=== PATIENT | female | born 1955 | race Caucasian/White ===

== ENCOUNTER 2021-11-26 07:05 | Day surgery (SDC) | payer MEDICARE, BC ==
[~2021-11-26] VITALS: Ht 170.2 cm; Wt 88.6 kg
[~2021-11-26 07:05] MED LIST: ADULT LOW DOSE81 MG PO; ADVIL200 MG PO; CRANBERRY 4001 EACH PO; DOXYCYCLINE HY100 MG PO; FLUOXETINE HCL20 MG PO; IRON325 M1 PO; MAGNESIUM400 MG PO; OMEPRAZOLE20 MG PO; PANTOPRAZOLE SO40 MG PO; PEPCID40 MG PO; SIMVASTATIN20 MG PO; TOPROL XL25 MG PO; VITAMIN C500 M1 PO; VITAMIN D5000 UNIT PO
[2021-11-26] MEDS ORDERED: POTASSIUM CHLO10 ME1 PO (07:27)
[2021-11-26] MEDS ORDERED: FLUOXETINE HCL20 MG PO (07:27)
--- NOTE | 2021-11-26 08:52 | NUR ---
11/26/21 0852 Adri Wright 0899-PATIENT ARRIVED TO PACU ON 2L NC RR EVEN LAYING LEFT LATERAL. IVF INFUSING. PATIENT AROUSES TO VERBAL STIMULI REMAINS VERY DROWSY DOZES BACK TO SLEEP. IVF INFUSING.
--- NOTE | 2021-11-27 06:13 | OR ---
[facility] [address] [place], [place] [address] Signed DATE OF OPERATION: 11/26/2021 SURGEON: Anita Salazar MD PREOPERATIVE DIAGNOSES: 1. Personal history of colonic polyps in 2010 at age 55. 2. Diverticulosis 2013. POSTOPERATIVE DIAGNOSES: 1. Moderate sigmoid diverticulosis with multiple severe angulations. 2. 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 3. Minimal to moderate internal hemorrhoids. PROCEDURE: Colonoscopy with cold biopsy x1 left colon. ESTIMATED BLOOD LOSS: None. INDICATIONS: Earlene is a 65-year-old female, asked to see me for a followup colonoscopy. A general surgeon removed colonic polyps before in 2010 while she lived in [place], [place]. She was age 55. She believes the surgeon asked her to follow up in three years for repeat colonoscopy. I helped with a colonoscopy in 2013. She had moderate diverticulosis. She did develop some anemia and guaiac-positive stool associated with acid reflux. There was also concern about a possible colovesicular fistula based on recurring urinary tract infections. However, asymptomatic. She had been working with her urologist at that time. Apparently, there was some air in her bladder on the CT scan. Although she never complained of pneumaturia. I did her upper and lower endoscopy in 2014 and found a small hiatal hernia with mild gastritis. Again, she had diverticulosis but no obvious colovesicular fistula. She had done well with Versed and fentanyl. Because she was asymptomatic, she never underwent a sigmoid resection and she has done well over the last six years. She says she has intermittent urinary tract infections. They are usually asymptomatic. She is probably colonized to some degree. She has no family history of colon cancer or polyps. She currently has no lower GI complaints. In the office, I gave her a pamphlet on colonoscopy. She recalls the test well. There is risk including, but not limited to gas bloating, crampy abdominal pain, bleeding, perforation requiring surgery, and missed diagnosis. She also understands the need for IV conscious sedation. She had expressed understanding and wished to proceed. Electronically Signed By: ANITA SALAZAR MD 11/27/21 0613 PATIENT NAME: EARLENE DUKE OPERATIVE REPORT DATE OF : 53 REPORT #: [id number] PHYSICIAN: ANITA SALAZAR MD PCP: ECHO METZ REPORT IS CONFIDENTIAL AND NOT TO BE RELEASED WITHOUT AUTHORIZATION [facility] [address] [place], [place] [address] Signed PROCEDURE NOTE: Earlene was taken into our endoscopy suite and placed in the left lateral decubitus position. She was given a total of 10 mg of Versed and 150 mcg of fentanyl to cover the case. A digital rectal exam was performed and I could feel either staple lines there is some mesh through the wall of the rectum. It looks like she had a hysterectomy back in 2007. The adult colonoscope had been introduced and advanced under direct visualization of the camera. Her sigmoid colon is quite difficult because of the multiple areas of angulation. She benefits well from a double bowel prep. It took extra sedation and some abdominal compression and eventually we made our way through the sigmoid colon. The lumen then opened up very nicely and the scope travelled quite readily up through into the proximal right colon. It took just a little extra abdominal compression and the scope passed into the cecum itself. Overall, her prep was quite good. The scope was then slowly withdrawn. We could easily see the appendiceal orifice as well as the ileocecal valve. We took pictures throughout for photodocumentation. We noticed mild tiger striping throughout the colon consistent with melanosis coli. Consequently, we took a single cold biopsy from the left colon. Again, she has diverticulosis. They are moderate in size, moderate in number, and scattered about. Again, her sigmoid colon has multiple areas of angulation. The rectum itself was unremarkable. Upon retroflexion of the scope, she has minimal to moderate internal hemorrhoids as well. After this, the gas was suctioned out and the colonoscope removed. Earlene tolerated the procedure quite well. RECOMMENDATIONS: I will see Earlene back in my office in 7 to 14 days to review her biopsy results. Anita Salazar MD ALB/MODL /[id number] cc: KEVIN Mortensen MD Copies: ECHO METZ Electronically Signed By: ANITA SALAZAR MD 11/27/21 0613 PATIENT NAME: EARLENE DUKE OPERATIVE REPORT DATE OF : 53 REPORT #: [id number] PHYSICIAN: ANITA SALAZAR MD PCP: ECHO METZ REPORT IS CONFIDENTIAL AND NOT TO BE RELEASED WITHOUT AUTHORIZATION [address] [address] Signed ANITA SALAZAR MD ~ Electronically Signed By: ANITA SALAZAR MD 11/27/21 0613 PATIENT NAME: EARLENE DUKE PEPE OPERATIVE REPORT DATE OF : 53 REPORT #: [id number] PHYSICIAN: ANITA SALAZAR MD PCP: ECHO METZ REPORT IS CONFIDENTIAL AND NOT TO BE RELEASED WITHOUT AUTHORIZATION
== END 2021-11-26 09:30 | disposition home or self-care (01) ==
LOC: OPS 07:05 → DS 07:05 → OPS 08:15
PROVIDERS: ATTEND Colon & Rectal Surgery
PROC: 0DBG8ZX Excision of Left Large Intestine, Via Natural or Artificial Opening Endoscopic, Diagnostic (ICD-10-PCS; principal; 2021-11-26 08:15)
DX: Z09 Encounter for follow-up examination after completed treatment for conditions other than malignant neoplasm (principal); K57.30 Diverticulosis of large intestine without perforation or abscess without bleeding; K63.89 Other specified diseases of intestine; K64.8 Other hemorrhoids
CPT/HCPCS: 99153; G0500; J2250; J3010; J7121

== ENCOUNTER 2024-10-02 17:52 | Emergency (ER) | payer MEDICARE, OTHER ==
[~2024-10-02] VITALS: Ht 170.2 cm; Wt 102.0 kg
[~2024-10-02 17:52] MED LIST changes: +POTASSIUM CHLO10 ME1 PO
[2024-10-02] MEDS ORDERED: ATORVASTATIN CA40 MG PO (18:08)
[2024-10-02] MEDS ORDERED: METOPROLOL SUCC50 MG PO (18:08)
[2024-10-02] MEDS ORDERED: METOPROLOL TARTRATE 5 MG/5 ML VIAL IV SCH (18:15)
[2024-10-02 18:23] LABS: BASOPHILS 1.2 % (0-2); EOSINOPHILS 3.9 % (0-6); HEMATOCRIT 39.5 % (35.0-50.0); HEMOGLOBIN 13.3 g/dL (12.0-18.0); MCH 29.5 (27-36); MCHC 33.7 g/dl (30-36); MCV 87.4 fl (81-99); MONOCYTES 11.9 % (0-12); PLATELET COUNT 256 K/uL (140-440); RBC 4.52 M/ul (4.3-5.7); RDW 16.1 (10.5-15.0)
[2024-10-02 18:43] LABS: ALBUMIN 3.5 g/dL (3.4-5.0); ALBUMIN/GLOBULIN RATIO 0.95 (1.1-2.4); BILIRUBIN, TOTAL 0.4 ng/dL (0.2-1.0); BUN/CREATININE RATIO 22.01 (6.0-28.6); CALCIUM 8.9 mg/dL (8.5-10.1); CREATININE, SERUM 1.09 mg/dL (0.55-1.02); PROTEIN, TOTAL 7.2 g/dL (6.4-8.2); TSH, 3RD GENERATION 4.759 uIU/mL (0.358-3.740)
[2024-10-02] MEDS ORDERED: ETOMIDATE 40 MG/20 ML VIAL IV ONE (19:15)
[2024-10-02 20:28] VITALS: BP 150/58
[2024-10-02] MEDS ORDERED: APIXABAN 5 MG TAB PO ONE (20:30)
--- NOTE | 2024-10-04 13:57 | EKG ---
[facility] [address] [facility] [place] [address] Signed Atrial fibrillation with rapid ventricular response Nonspecific ST abnormality Abnormal ECG When compared with ECG of 05-FEB-2017 08:23, Atrial fibrillation has replaced Sinus rhythm Vent. rate has increased BY [address] now depressed in Lateral leads Confirmed by Brando Gutierrez MD () on 10/04/2024 1:57:32 PM Electronically Signed By: BRANDO GUTIERREZ MD 10/04/24 1357 PATIENT NAME: JUAN DAVID DUKE Electrocardiogram DATE OF : 53 PHYSICIAN: BRANDO GUTIERREZ MD REPORT #: [id number] REPORT IS CONFIDENTIAL AND NOT TO BE RELEASED WITHOUT AUTHORIZATION
== END 2024-10-02 20:29 | disposition home or self-care (01) ==
LOC: ED 17:52
PROVIDERS: Emergency Medicine
DX: I48.91 Unspecified atrial fibrillation (principal); Z79.82 Long term (current) use of aspirin; Z79.899 Other long term (current) drug therapy; Z91.09 Other allergy status, other than to drugs and biological substances; Z91.040 Latex allergy status
CPT/HCPCS: 36415; 80053; 83735; 84436; 84439; 84443; 84484; 85025; 92950; 93005; 93010; 99152; 99285-25

== ENCOUNTER 2024-12-14 10:19 | Emergency (ER) | payer MEDICARE, OTHER ==
[~2024-12-14] VITALS: Ht 170.2 cm; Wt 96.6 kg
[~2024-12-14 10:19] MED LIST changes: +ATORVASTATIN CA40 MG PO; +METOPROLOL SUCC50 MG PO
[2024-12-14] MEDS ORDERED: EZETIMIBE10 MG (10:29)
[2024-12-14] MEDS ORDERED: ELIQUIS5 MG (10:29)
[2024-12-14] MEDS ORDERED: ASPIRIN 81 MG CHEW PO ONE (10:30)
[2024-12-14] MEDS ORDERED: NITROGLYCERIN0.4 MG (10:30)
[2024-12-14] MEDS ORDERED: NITROGLYCERIN 0.4 MG SUBL SL PRN (10:30)
[2024-12-14 10:33] LABS: BASOPHILS 0.8 % (0-2); EOSINOPHILS 3.3 % (0-6); HEMOGLOBIN 12.8 g/dL (12.0-18.0); LYMPHOCYTES 19.6 % (24-44); MCH 29.3 (27-36); MCHC 33.7 g/dl (30-36); NEUTROPHILS 66.3 % (39-80); PLATELET COUNT 302 K/uL (140-440); RBC 4.37 M/ul (4.3-5.7); RDW 16.4 (10.5-15.0)
[2024-12-14 10:46] LABS: INR 1.03 (0.80-1.30); PROTIME 13.4 Sec (11.2-14.2)
[2024-12-14 10:54] LABS: ALBUMIN 3.4 g/dL (3.4-5.0); ALBUMIN/GLOBULIN RATIO 0.94 (1.1-2.4); ANION GAP 14.9 (7-21); BILIRUBIN, TOTAL 0.5 ng/dL (0.2-1.0); BUN/CREATININE RATIO 16.48 (6.0-28.6); CALCIUM 9.1 mg/dL (8.5-10.1); CREATININE, SERUM 0.91 mg/dL (0.55-1.02); POTASSIUM 3.9 mmol/L (3.5-5.1)
[2024-12-14 11:58] VITALS: BP 115/58
[2024-12-14] MEDS ORDERED: PEPCID20 MG PO (11:58)
--- NOTE | 2024-12-14 22:16 | EKG ---
[facility] [address] [facility] [place] [address] Signed Normal sinus rhythm Anterior infarct , age undetermined Abnormal ECG When compared with ECG of 02-OCT-2024 18:00, Normal sinus rhythm has replaced Atrial fibrillation Confirmed by Brando Gutierrez MD () on 12/14/2024 10:15:56 PM Electronically Signed By: BRADNO GUTIERREZ MD 12/14/24 2216 PATIENT NAME: JUAN DAVID DUKE Electrocardiogram DATE OF : 53 PHYSICIAN: BRANDO GUTIERREZ MD REPORT #: [id number] REPORT IS CONFIDENTIAL AND NOT TO BE RELEASED WITHOUT AUTHORIZATION
== END 2024-12-14 12:03 | disposition home or self-care (01) ==
LOC: ED 10:19
PROVIDERS: Emergency Medicine
DX: R07.9 Chest pain, unspecified (principal); I48.91 Unspecified atrial fibrillation; I10 Essential (primary) hypertension; E78.5 Hyperlipidemia, unspecified; Z91.040 Latex allergy status; Z91.048 Other nonmedicinal substance allergy status; Z79.899 Other long term (current) drug therapy; Z79.01 Long term (current) use of anticoagulants; Z79.82 Long term (current) use of aspirin
CPT/HCPCS: 36415; 71045; 80053; 83735; 84484; 85025; 85610; 93005; 93010; 99285-25; A9270

== ENCOUNTER 2025-08-16 07:19 | Day surgery (SDC) | payer MEDICARE, OTHER ==
[~2025-08-16] VITALS: Ht 170.2 cm; Wt 95.0 kg
[~2025-08-16 07:19] MED LIST changes: +ELIQUIS5 MG PO; +EZETIMIBE10 MG PO; +IBLOOD GLUCOSE TEST STRIP 1 EA TEST VI PRN; +LACTATED RINGER'S 1,000 ML IV SCH; +LIDOCAINE 1% W/ EPI 1:200,000 30 ML SDV ONE; +LIDOCAINE HCL 1% 5 ML SDV INJ ONE; +NITROGLYCERIN0.4 MG SL; +OPTIMAG 125125 MG PO; +PEPCID20 MG PO; +PLAVIX75 MG PO; +VITAMIN B12500 MCG PO
[2025-08-16 07:36] VITALS: BP 169/67
--- NOTE | 2025-08-16 07:55 | NUR ---
WAITING IN LOBBY.
[2025-08-16] MEDS ORDERED: fentaNYL citrate 100 MCG/2 ML VIAL ONE (08:53)
[2025-08-16] MEDS ORDERED: LIDOCAINE HCL 2% 5 ML SDV ONE (09:10)
[2025-08-16 10:42] VITALS: BP 130/63
--- NOTE | 2025-08-16 15:07 | NUR ---
08/16/25 1507 Sheets,Anjali 0914 PT ARRIVED TO PACU ON LEFT SIDE, ASLEEP AND RESP EVEN AND UNLABORED. 09 O2 DECREASED TO 4L VIA NC. 926 PT WAKES AND O2 REMOVED, PT REORIENTED TO PACU AND ROLLED TO BACK HOB INCREASED. PT SIPPING WATER PER REQUEST. VSS. 0955 PT DRESSED HERSELF AND DC INSTRUCTIONS GIVEN. ALL QUESTIONS ANSWERED AND PT DC FROM DEPARTMENT VIA WC.
== END 2025-08-16 09:55 | disposition home or self-care (01) ==
LOC: DS 07:19
PROVIDERS: ATTEND Surgery
PROC: 0DJ08ZZ Inspection of Upper Intestinal Tract, Via Natural or Artificial Opening Endoscopic (ICD-10-PCS; principal; 2025-08-16 08:50)
DX: K29.00 Acute gastritis without bleeding (principal); D62 Acute posthemorrhagic anemia; K21.9 Gastro-esophageal reflux disease without esophagitis; R23.8 Other skin changes; E78.5 Hyperlipidemia, unspecified; I48.91 Unspecified atrial fibrillation; Z91.040 Latex allergy status; Z79.01 Long term (current) use of anticoagulants; Z79.899 Other long term (current) drug therapy
CPT/HCPCS: 00813; J2003; J2704; J3010; J7121

== ENCOUNTER 2025-08-31 07:38 | Emergency (ER) | payer MEDICARE, OTHER ==
[~2025-08-31] VITALS: Ht 170.2 cm; Wt 95.8 kg
--- OUTSIDE RECORDS SUMMARY | ~2025-08-31 | XMS | Continuity of Care Document ---
Demographics + + + | Address | [address] | | | [place] [address] | + + + | Preferred Language | Unknown | + + + | Marital Status | | + + + | Taoist Affiliation | Unknown | + + + | Race | White | + + + | Ethnic Group | Not or | + + + Author + + + | Author | [facility] | + + + | Organization | [facility] | + + + | Address | [address] | | | [place] [address] | + + + | Phone | | + + + Care Team Providers + + + + | Care Ruffling Machine Operator Name | Role | Phone | + + + + Unavailable | Unavailable | + + + + Unavailable | Unavailable | + + + + Allergies No information. Encounters No information. Functional Status No information. Immunizations No information. Medications + + + + | date | description | facility | + + + + | (no date) | APIXABAN | [facility] | | | | [facility] | + + + + | (no date) | IBUPROFEN | [facility] | | | | [facility] | + + + + | (no date) | DOXYCYCLINE HYCLATE | [facility] | | | | [facility] | + + + + | (no date) | NITROGLYCERIN | [facility] | | | | [facility] | + + + + | (no date) | OMEPRAZOLE | [facility] | | | | [facility] | + + + + | (no date) | CLOPIDOGREL BISULFATE | [facility] | | | | [facility] | + + + + | (no date) | MAGNESIUM OXIDE | [facility] | | | | [facility] | + + + + | (no date) | ASCORBIC ACID | [facility] | | | | [facility] | + + + + | (no date) | ASPIRIN | [facility] | | | | [facility] | + + + + | (no date) | FERROUS SULFATE | [facility] | | | | [facility] | + + + + | (no date) | FLUOXETINE HCL | [facility] | | | | [facility] | + + + + | (no date) | Cyanocobalamin (Vitamin | [facility] | | | B-12) | [facility] | + + + + | (no date) | Ezetimibe | [facility] | | | | [facility] | + + + + | (no date) | ATORVASTATIN CALCIUM | [facility] | | | | [facility] | + + + + | (no date) | CHOLECALCIFEROL (VITAMIN | [facility] | | | D3) | [facility] | + + + + | (no date) | METOPROLOL SUCCINATE | [facility] | | | | [facility] | + + + + Problems No information. Procedures + + + + | date | description | facility | + + + + | 2025-08-16 00:00 | Esophagogastroduodenoscopy | [facility] | | | (EGD) | [facility] | + + + + | 2025-08-16 00:00 | Esophagogastroduodenoscopy | [facility] | | | (EGD) | [facility] | + + + + Results/Labs [...]
[~2025-08-31 07:38] MED LIST changes: -IBLOOD GLUCOSE TEST STRIP 1 EA TEST VI PRN; -LACTATED RINGER'S 1,000 ML IV SCH; -LIDOCAINE 1% W/ EPI 1:200,000 30 ML SDV ONE; -LIDOCAINE HCL 1% 5 ML SDV INJ ONE
[2025-08-31] MEDS ORDERED: SUCRALFATE1 GM PO (07:50)
[2025-08-31 07:54] LABS: BASOPHILS 0.6 % (0.1-1.2); EOSINOPHILS 2.6 % (0.7-5.8); LYMPHOCYTES 13.8 % (19.3-51.7); MCH 24.1 PG (25.6-32.2); MCHC 29.6 g/dL (32.2-35.5); MCV 81.4 fL (79.4-94.8); MONOCYTES 10.8 % (4.7-12.5); NEUTROPHILS 71.8 % (34.0-71.1); RBC 4.36 M/uL (3.93-5.22)
[2025-08-31 08:13] LABS: ALT (SGPT) 16.0 U/L (14-59); AST (SGOT) 14.0 U/L (15-37); GLOMERULAR FILTRATION RATE,EST 77.0 mL/min (>60); PROTEIN, TOTAL 6.7 g/dL (6.4-8.2); UREA NITROGEN 15.0 mg/dL (7-18)
[2025-08-31 09:19] VITALS: BP 122/62
--- NOTE | 2025-08-31 19:41 | EKG ---
[facility] [address] [facility] [place] [address] Signed Sinus rhythm with premature atrial complexes Otherwise normal ECG When compared with ECG of 15-AUG-2025 08:38, premature atrial complexes are now present Confirmed by Wilfrid Cartagena DO ([id number]) on 08/31/2025 7:41:38 PM Electronically Signed By: WILFRID CARTAGENA DO 08/31/251940 PATIENT NAME: DUKEJUAN DAVID Electrocardiogram DATE OF : 53 PHYSICIAN: WILFRID CARTAGENA DO REPORT #: [id number] REPORT IS CONFIDENTIAL AND NOT TO BE RELEASED WITHOUT AUTHORIZATION
== END 2025-08-31 09:24 | disposition home or self-care (01) ==
LOC: ED 07:38
PROVIDERS: Emergency Medicine
DX: R00.2 Palpitations (principal); K21.9 Gastro-esophageal reflux disease without esophagitis; I10 Essential (primary) hypertension; E78.5 Hyperlipidemia, unspecified; I48.91 Unspecified atrial fibrillation; Z91.040 Latex allergy status; Z79.899 Other long term (current) drug therapy
CPT/HCPCS: 36415; 71045; 80053; 83735; 84484; 85025; 85060; 93005; 93010; 99285-25

== ENCOUNTER 2025-09-24 08:36 | Emergency (ER) | payer MEDICARE, OTHER ==
[~2025-09-24] VITALS: Ht 170.2 cm; Wt 95.1 kg
--- OUTSIDE RECORDS SUMMARY | ~2025-09-24 | XMS | Continuity of Care Document ---
Demographics + + + | Address | [address] | | | [place] [address] | + + + | Preferred Language | Unknown | + + + | Marital Status | | + + + | Spiritism Affiliation | Unknown | + + + | Race | White | + + + | Ethnic Group | Not or | + + + Author + + + | Author | [facility] | + + + | Organization | [facility] | + + + | Address | [address] | | | [place] [address] | + + + | Phone | | + + + Care Team Providers + + + + | Care Manager Estate Name | Role | Phone | + + + + Unavailable | Unavailable | + + + + Unavailable | Unavailable | + + + + Allergies No information. Encounters No information. Functional Status No information. Immunizations No information. Medications + + + + | date | description | facility | + + + + | (no date) | [facility]ABAN | [facility] | | | | [facility] | + + + + | (no date) | IBUPROFEN | [facility] | | | | [facility] | + + + + | (no date) | DOXYCYCLINE HYCLATE | [facility] | | | | [facility] | + + + + | (no date) | NITROGLYCERIN | [facility] | | | | [facility] | + + + + | (no date) | OMEPRAZOLE | [facility] | | | | [facility] | + + + + | (no date) | CLOPIDOGREL BISULFATE | [facility] | | | | [facility] | + + + + | (no date) | MAGNESIUM OXIDE | [facility] | | | | [facility] | + + + + | (no date) | ASCORBIC ACID | [facility] | | | | [facility] | + + + + | (no date) | ASPIRIN | [facility] | | | | [facility] | + + + + | (no date) | FERROUS SULFATE | [facility] | | | | [facility] | + + + + | (no date) | FLUOXETINE HCL | [facility] | | | | [facility] | + + + + | (no date) | Cyanocobalamin (Vitamin | [facility] | | | B-12) | [facility] | + + + + | (no date) | Ezetimibe | [facility] | | | | [facility] | + + + + | (no date) | ATORVASTATIN CALCIUM | [facility] | | | | [facility] | + + + + | (no date) | CHOLECALCIFEROL (VITAMIN | [facility] | | | D3) | [facility] | + + + + | (no date) | METOPROLOL SUCCINATE | [facility] | | | | [facility] | + + + + Problems No information. Procedures + + + + | date | description | facility | + + + + | 2025-08-16 00:00 | Esophagogastroduodenoscopy | [facility] | | | (EGD) | [facility] | + + + + | 2025-08-16 00:00 | Esophagogastroduodenoscopy | [facility] | | | (EGD) | [facility] | + + + + Results/Labs +--------+--------+ +---------+--------+---------+ | test | date | facility | value | unit | notes | +--------+--------+ +---------+--------+---------+ + + | Result panel 1 | + + + + + +--------+ + + | WBC # Bld | 2025-08-15 | | 4.05 | (missing) | (missing) | | Auto | 09:45:07 | [facility] | | | | + + + +--------+ + + + + | Result panel 2 | + + + + + +--------+ + + | Neutrophils | 2025-08-15 | | 71.4 | (missing) | (missing) | | NFr Bld | 09:45:07 | [facility] | | | | | Auto | [facility] | | | | + + + +--------+ + + + + | Result panel 3 | + + + + + +--------+ + + | Lymphocytes | 2025-08-15 | | 14.6 | (missing) | (missing) | | NFr Bld | 09:45:07 | [facility] | | | | | [facility] | [facility] | | | | + + + +--------+ + + + + | Result panel 4 | + + + + + +-------+ + + | Monocytes | 2025-08-15 | | 9.6 | (missing) | (missing) | | NFr Bld Auto | 09:45:07 | [facility] | | | | + + + +-------+ + + + + | Result panel 5 | + + + + + +-------+ + + | Eosinophil | 2025-08-15 | | 3.5 | (missing) | (missing) | | NFr Bld Auto | 09:45:07 | [facility] | | | | + + + +-------+ + + + + | Result panel 6 | + + + + + +-------+ + + | Basophils | 2025-08-15 | | 0.7 | (missing) | (missing) | | NFr Bld Auto | 09:45:07 | [facility] | | | | + + + +-------+ + + + + | Result panel 7 | + + + + + + + + + | Bld Smear | 2025-08-15 | | SEE COMMENT | (missing) | (missing) | | Interp | 09:45:07 | [facility] | | | | + + + + + + + + + | Result panel 8 | + + + + + +--------+ + + | RBC # Bld | 2025-08-15 | | 4.08 | (missing) | (missing) | | Auto | 09:45:07 | [facility] | | | | + + + +--------+ + + + + | Result panel 9 | + + + + + +-------+ + + | Hgb | 2025-08-15 | | 9.3 | (missing) | (missing) | | Bld-mCnc | 09:45:07 | [facility] | | | | | | | - | | | | | | | [facility] | | | | + + + +-------+ + + + + | Result panel 10 | + + + + + +--------+ + + | Hct VFr.DF | 2025-08-15 | | 32.4 | (missing) | (missing) | | Bld Auto | 09:45:07 | [facility] | | | | + + + +--------+ + + + + | Result panel 11 | + + + + + +--------+ + + | RBC Auto | 2025-08-15 | | 79.4 | (missing) | (missing) | | | 09:45:07 | [facility] | | | | + + + +--------+ + + + + | Result panel 12 | + + + + + +--------+ + + | MCH RBC Qn | 2025-08-15 | | 22.8 | (missing) | (missing) | | Auto | 09:45:07 | [facility] | | | | + + + +--------+ + + + + | Result panel 13 | + + + + + +--------+ + + | MCHC RBC | 2025-08-15 | | 28.7 | (missing) | (missing) | | Auto-EntMCnc | 09:45:07 | [facility] | | | | + + + +--------+ + + + + | Result panel 14 | + + + + + +-------+ + + | Platelet # | 2025-08-15 | | [id number] | (missing) | (missing) | | Bld Auto | 09:45:07 | [facility] | [facility] | | | | + + + +-------+ + + Social History +--------+ + + | date | description | facility | +--------+ + + Vital Signs + + + +---------+ | date | measurement | value | units | + + + +---------+ | 2025-08-15 00:00 | BMI | 32.8 | kg/m2 | + + + +---------+ | 2025-08-15 00:00 | height_metric | 170.18 | cm | + + + +---------+ | 2025-08-15 00:00 | height_standard | 67 | in | + + + +---------+ | 2025-08-15 00:00 | weight_metric | 94.999 | kg | + + + +---------+ | 2025-08-15 00:00 | weight_standard | 209.437 | lb | + + + +---------+ | 2025-08-16 00:00 | BP_diastolic | 67 | mmHg | + + + +---------+ | 2025-08-16 00:00 | BP_systolic | 169 | mmHg | + + + +---------+ | 2025-08-16 00:00 | heart_rate | 73 | /min | + + + +---------+ | 2025-08-16 00:00 | o2_saturation | 100 | % | + + + +---------+ | 2025-08-16 00:00 | respiration_rate | 18 | /min | + + + +---------+ | 2025-08-16 00:00 | | 98.3 | F | | | temperature_standar | | | | | d | | | + + + +---------+"
[~2025-09-24 08:36] MED LIST changes: +SUCRALFATE1 GM PO
--- OUTSIDE RECORDS SUMMARY | 2025-09-24 08:37 | XMS ---
PreManage Notification: JUAN DAVID DUKE Security Acid Regenerator Events No recent Security Events currently on file CRITERIA MET - [facility] - 2 Visits in 30 Days CARE PROVIDERS There are no care providers on record at this time. Kelli has no Care Guidelines for this patient. [place] VISIT COUNT (12 MO.) [address] [facility] TOTAL 4 NOTE: Visits indicate total known visits. [facility] [place]ACK[facility] (12 MO.) 09/24/2025 08:37 [facility] [place] TYPE: Emergency COMPLAINT: - HEART ISSUES 08/31/2025 07:38 [facility] [place] TYPE: Emergency COMPLAINT: - HEART RATE ISSUES DIAGNOSES: - Essential (primary) hypertension - Gastro-esophageal reflux disease without esophagitis - Hyperlipidemia, unspecified - Latex allergy status - Other prison (current) drug therapy - Palpitations - Unspecified atrial fibrillation 2024 10:20 [facility] [place] TYPE: Emergency COMPLAINT: - CHEST PAIN DIAGNOSES: - Chest pain, unspecified - Essential (primary) hypertension - Hyperlipidemia, unspecified - Latex allergy status - longterm (current) use of anticoagulants - longterm (current) use of aspirin - Other prison (current) drug therapy - Other nonmedicinal substance allergy status - Unspecified atrial fibrillation 10/02/2024 17:53 [facility] [place] TYPE: Emergency COMPLAINT: - HEART ISSUE/VOMITING DIAGNOSES: - Latex allergy status - equipment operator intermodal yard (current) use of aspirin - Other allergy status, other than to drugs and biological substances - Other prison (current) drug therapy - Palpitations - Unspecified atrial fibrillation INPATIENT VISIT TRACKING (12 MO.) No inpatient visits to display in this time frame [email or web address]
[2025-09-24] MEDS ORDERED: ASPIRIN 81 MG CHEW PO ONE (08:45)
[2025-09-24 08:56] LABS: BASOPHILS 0.7 % (0.1-1.2); EOSINOPHILS 6.4 % (0.7-5.8); LYMPHOCYTES 11.3 % (19.3-51.7); MCH 23.7 PG (25.6-32.2); MCHC 29.8 g/dL (32.2-35.5); MCV 79.5 fL (79.4-94.8); MONOCYTES 11.6 % (4.7-12.5); NEUTROPHILS 69.6 % (34.0-71.1); RBC 4.09 M/uL (3.93-5.22)
[2025-09-24 09:08] LABS: INR 1.29 (0.80-1.30); PROTIME 15.2 Sec (11.2-14.2)
[2025-09-24 09:15] LABS: ALT (SGPT) 16.0 U/L (14-59); AST (SGOT) 16.0 U/L (15-37); GLOMERULAR FILTRATION RATE,EST 80.0 mL/min (>60); PROTEIN, TOTAL 7.0 g/dL (6.4-8.2); UREA NITROGEN 15.0 mg/dL (7-18)
[2025-09-24] MEDS ORDERED: LORazepam 2 MG/ML VIAL IV ONE (09:15)
[2025-09-24] MEDS ORDERED: SODIUM CHLORIDE 0.9% 500 ML IV PRN (10:00)
[2025-09-24] MEDS ORDERED: ETOMIDATE 40 MG/20 ML VIAL IV ONE (10:30)
[2025-09-24] MEDS ORDERED: METOPROLOL TARTRATE 50 MG TAB PO ONE (12:30)
[2025-09-24 13:20] VITALS: BP 111/68
[2025-09-24] MEDS ORDERED: METOPROLOL TART25 MG PO (13:27)
--- NOTE | 2025-09-24 19:06 | EKG ---
[facility] [address] [facility] [place] [address] Signed Atrial fibrillation with rapid ventricular response with premature ventricular or aberrantly conducted complexes Possible Anterior infarct , age undetermined Abnormal ECG When compared with ECG of 31-AUG-2025 07:50, Atrial fibrillation has replaced Sinus rhythm Vent. rate has increased BY 65 BPM Confirmed by Brando Gutierrez MD () on 09/24/2025 7:05:48 PM Electronically Signed By: BRANDO GUTIERREZ MD 09/24/25 190 PATIENT NAME: JUAN DAVID DUKE Electrocardiogram DATE OF : 53 PHYSICIAN: BRANDO GUTIERREZ MD REPORT #: [id number] REPORT IS CONFIDENTIAL AND NOT TO BE RELEASED WITHOUT AUTHORIZATION
--- NOTE | 2025-09-24 19:16 | EKG ---
[facility] [address] [place] [address] Signed Sinus rhythm with premature atrial complexes Otherwise normal ECG When compared with ECG of 24-SEP-2025 08:41, Sinus rhythm has replaced Atrial fibrillation Vent. rate has decreased BY 76 BPM T wave inversion no longer evident in Lateral leads Confirmed by Brando Gutierrez MD () on 09/24/2025 7:16:24 PM Electronically Signed By: BRANDO GUTIERREZ MD 09/24/251915 PATIENT NAME: JUAN DAVID DUKE Electrocardiogram DATE OF : 53 PHYSICIAN: BRANDO GUTIERREZ MD REPORT #: [id number] REPORT IS CONFIDENTIAL AND NOT TO BE RELEASED WITHOUT AUTHORIZATION
== END 2025-09-24 13:20 | disposition home or self-care (01) ==
LOC: ED 08:36
PROVIDERS: Emergency Medicine
DX: I48.0 Paroxysmal atrial fibrillation (principal); K21.9 Gastro-esophageal reflux disease without esophagitis; E78.5 Hyperlipidemia, unspecified; I10 Essential (primary) hypertension; Z79.02 Long term (current) use of antithrombotics/antiplatelets; Z79.899 Other long term (current) drug therapy; Z91.048 Other nonmedicinal substance allergy status; Z91.040 Latex allergy status
CPT/HCPCS: 36415; 71045; 80053; 83735; 84484; 85025; 85610; 93005; 93010; 96374; 99285-25; J2060; J7040

== ENCOUNTER 2025-10-28 13:43 | Emergency (ER) | payer MEDICARE, OTHER ==
[~2025-10-28] VITALS: Ht 170.2 cm; Wt 95.6 kg
--- OUTSIDE RECORDS SUMMARY | ~2025-10-28 | XMS | Continuity of Care Document ---
Demographics + + + | Address | [address] | | | [place] [address] | + + + | Preferred Language | Unknown | + + + | Marital Status | | + + + | Catholic Affiliation | Unknown | + + + | Race | White | + + + | Ethnic Group | Not or | + + + Author + + + | Author | [facility] | + + + | Organization | [facility] | + + + | Address | [address] | | | [place] [address] | + + + | Phone | | + + + Care Team Providers + + + + | Care Compliance Auditor Name | Role | Phone | + + + + Unavailable | Unavailable | + + + + Unavailable | Unavailable | + + + + Unavailable | Unavailable | + + + + Allergies and Intolerances + + + + + + | date | description | facility | reaction | severity | + + + + + + | 2025-09-24 | Latex | [facility] | (no reaction) | Mild | | 00:00 | [facility] | | | + + + + + + | 2025-09-24 | Latex | [facility] - | (no reaction) | Mild | | 00:00 | | [facility] | | | + + + + + + | 2025-09-24 | Latex | [facility] - | (no reaction) | Mild | | 00:00 | | [facility] | | | + + + + + + | 2025-09-24 | Adhesive agent | [facility] - | (no reaction) | Mild | | 00:00 | | [facility] | | | + + + + + + | 2025-09-24 | Adhesive agent | [facility] - | (no reaction) | Mild | | 00:00 | | [facility] | | | + + + + + + | 2025-09-24 | Latex | [facility] - | (no reaction) | Mild | | 00:00 | | [facility] | | | + + + + + + Encounters No information. Functional Status No information. Immunizations No information. Medications + + + + | date | description | facility | + + + + | (no date) | APIXABAN | [facility] | | [facility] | + + + + | (no date) | APIXABAN | [facility] | | | | [facility] | + + + + | (no date) | IBUPROFEN | [facility] | | | | [facility] | + + + + | (no date) | IBUPROFEN | [facility] | | | | [facility] | + + + + | (no date) | DOXYCYCLINE HYCLATE | [facility] | | | | [facility] | + + + + | (no date) | DOXYCYCLINE HYCLATE | [facility] | | | | [facility] | + + + + | (no date) | NITROGLYCERIN | [facility] | | | | [facility] | + + + + | (no date) | NITROGLYCERIN | [facility] | | | | [facility] | + + + + | (no date) | OMEPRAZOLE | [facility] | | | [facility] | + + + + | (no date) | OMEPRAZOLE | [facility] | | | | [facility] | + + + + | (no date) | CLOPIDOGREL BISULFATE | [facility] | | | | [facility] | + + + + | (no date) | CLOPIDOGREL BISULFATE | [facility] | | | | [facility] | + + + + | (no date) | MAGNESIUM OXIDE | [facility] | | | | [facility] | + + + + | (no date) | MAGNESIUM OXIDE | [facility] | | | | [facility] | + + + + | (no date) | ASCORBIC ACID | [facility] | | | [facility] | + + + + | (no date) | ASCORBIC ACID | [facility] | | | [facility] | + + + + | (no date) | ASPIRIN | [facility] | | | [facility] | + + + + | (no date) | ASPIRIN | [facility] | | | [facility] | + + + + | (no date) | FERROUS SULFATE | [facility] | | | [facility] | + + + + | (no date) | FERROUS SULFATE | [facility] | | | | [facility] | + + + + | (no date) | FLUOXETINE HCL | [facility] | | | | [facility] | + + + + | (no date) | FLUOXETINE HCL | [facility] | | | | [facility] | + + + + | (no date) | Cyanocobalamin (Vitamin | [facility] | | | B-12) | [facility] | + + + + | (no date) | Ezetimibe | [facility] | | | | [facility] | + + + + | (no date) | ATORVASTATIN CALCIUM | [facility] | | | | [facility] | + + + + | (no date) | ATORVASTATIN CALCIUM | [facility] | | | | [facility] | + + + + | (no date) | CHOLECALCIFEROL (VITAMIN | [facility] | | | D3) | [facility] | + + + + | (no date) | CHOLECALCIFEROL (VITAMIN | [facility] | | | D3) | [facility] | + + + + | (no date) | METOPROLOL SUCCINATE | [facility] | | | | [facility] | + + + + | (no date) | METOPROLOL SUCCINATE | [facility] | | | | [facility] | + + + + | 2025-09-24 00:00 | METOPROLOL TARTRATE | [facility] | | | | [facility] | + + + + Problems + + + + | date | description | facility | + + + + | 2025-09-24 00:00 | Paroxysmal atrial | [facility] | | | fibrillation with rapid | [facility] | | | ventricular response | | + + + + Procedures + + + + | date | description | facility | + + + + | 2025-08-16 00:00 | Esophagogastroduodenoscopy | [facility] | | | (EGD) | [facility] | + + + + | 2025-08-16 00:00 | Esophagogastroduodenoscopy | [facility] | | | (EGD) | [facility] | + + + + Results/Labs +--------+--------+ [...] 2 | + + + + + + [...] 5 | + + + + + +--------+ [...] 6 | + + + + + +--------+ [...] 7 | + + + + + +--------+ [...] 12 | + + + + + +-------+ + + | Monocytes | 2025-08-15 | | 9.6 | (missing) | (missing) | | NFr Bld Auto | 09:45:07 | [facility] | | | | + + + +-------+ + + + + | Result panel 13 | + + + + + +-------+ [...] + + + + | Result panel 15 | + + + + + +--------+ + + | WBC # Bld | 2025-09-24 | | 5.50 | (missing) | (missing) | | Auto | 08:50:08 | [facility] | | | | + + + +--------+ + + + + | Result panel 16 | + + + + + +--------+ + + | Lymphocytes | 2025-09-24 | | 11.3 | (missing) | (missing) | | NFr Bld | 08:50:08 | [facility] | | | | | Auto | [facility] | | | | + + + +--------+ + + + + | Result panel 17 | + + + + + +--------+ + + | Monocytes | 2025-09-24 | | 11.6 | (missing) | (missing) | | NFr Bld Auto | 08:50:08 | [facility] | | | | + + + +--------+ + + + + | Result panel 18 | + + + + + +-------+ + + | Eosinophil | 2025-09-24 | | 6.4 | (missing) | (missing) | | NFr Bld Auto | 08:50:08 | [facility] | | | | + + + +-------+ + + + + | Result panel 19 | + + + + + +-------+ + + | Basophils | 2025-09-24 | | 0.7 | (missing) | (missing) | | NFr Bld Auto | 08:50:08 | [facility] | | | | + + + +-------+ + + + + | Result panel 20 | + + + + + +--------+ + + | Prothrombin | 2025-09-24 | | 15.2 | (missing) | (missing) | | time | 08:50:08 | [facility] | | | | + + + +--------+ + + + + | Result panel 21 | + + + + + +--------+ + + | INR PPP | 2025-09-24 | | 1.29 | (missing) | (missing) | | | 08:50:08 | [facility] | | | | + + + +--------+ + + + + | Result panel 22 | + + + + + +-------+---------+ + | Glucose | 2025-09-24 | | 124 | mg/dL | (missing) | | SerPl-mCnc | 08:50:08 | [facility] | | | | + + + +-------+---------+ + + + | Result panel 23 | + + + + + +------+---------+ + | BUN | 2025-09-24 | | 15 | mg/dL | (missing) | | SerPl-mCnc | 08:50:08 | [facility] | | | | + + + +------+---------+ + + + | Result panel 24 | + + + + + +--------+---------+ + | Creat | 2025-09-24 | | 0.79 | mg/dL | (missing) | | SerPl-mCestefani | 08:50:08 | [facility] | | | | + + + +--------+---------+ + + + | Result panel 25 | + + + + + +------+ + + | eGFRcr | 2025-09-24 | | 80 | (missing) | (missing) | | SerPlBld | 08:50:08 | [facility] | | | | | CKD-EPI 2020 | [facility] | | | | + + + +------+ + + + + | Result panel 26 | + + + + + +--------+ + + | RBC # Bld | 2025-09-24 | | 4.09 | (missing) | (missing) | | Auto | 08:50:08 | [facility] | | | | + + + +--------+ + + + + | Result panel 27 | + + + + + +---------+ + + | BUN/Creat | 2025-09-24 | | 18.98 | (missing) | (missing) | | SerPl | 08:50:08 | [facility] | | | | + + + +---------+ + + + + | Result panel 28 | + + + + + +-------+ + + | Sodium | 2025-09-24 | | 135 | (missing) | (missing) | | SerPl-sCnc | 08:50:08 | [facility] | | | | + + + +-------+ + + + + | Result panel 29 | + + + + + +-------+ + + | Potassium | 2025-09-24 | | 3.8 | (missing) | (missing) | | SerPl-sCnc | 08:50:08 | [facility] | | | | + + + +-------+ + + + + | Result panel 30 | + + + + + +------+ + + | Chloride | 2025-09-24 | | 99 | (missing) | (missing) | | Ser[facility] | 08:50:08 | [facility] | | | | + + + +------+ + + + + | Result panel 31 | + + + + + +------+ + + | CO2 | 2025-09-24 | | 22 | (missing) | (missing) | | SerPl-sCnc | 08:50:08 | [facility] | | | | + + + +------+ + + + + | Result panel 32 | + + + + + +--------+ + + | Anion Gap | 2025-09-24 | | 17.8 | (missing) | (missing) | | SerPl | 08:50:08 | [facility] | | | | | Calculated.4 | [facility] | | [facility] | | | | + + + +--------+ + + + + | Result panel 33 | + + + + + +-------+---------+ + | Calcium | 2025-09-24 | | 8.7 | mg/dL | (missing) | | Nohemy | 08:50:08 | [facility] | | | | + + + +-------+---------+ + + + | Result panel 34 | + + + + + +-------+---------+ + | Magnesium | 2025-09-24 | | 2.0 | mg/dL | (missing) | | Nohemy | 08:50:08 | [facility] | | | | + + + +-------+---------+ + + + | Result panel 35 | + + + + + +-------+ + + | Prot | 2025-09-24 | | 7.0 | (missing) | (missing) | | SerPl-Camila | 08:50:08 | [facility] | | | | + + + +-------+ + + + + | Result panel 36 | + + + + + +-------+ + + | Albumin | 2025-09-24 | | 3.6 | (missing) | (missing) | | SerPl-mCestefani | 08:50:08 | [facility] | | | | + + + +-------+ + + + + | Result panel 37 | + + + + + +-------+ + + | Hgb | 2025-09-24 | | 9.7 | (missing) | (missing) | | Bld-Camila | 08:50:08 | [facility] | | | | + + + +-------+ + + + + | Result panel 38 | + + + + + +-------+ + + | Globulin | 2025-09-24 | | 3.4 | (missing) | (missing) | | Ser-mCnc | 08:50:08 | [facility] | | | | + + + +-------+ + + + + | Result panel 39 | + + + + + +--------+ + + | | 2025-09-24 | | 1.06 | (missing) | (missing) | | Albumin/Glob | 08:50:08 | [facility] | | | | | SerPl | [facility] | | | | + + + +--------+ + + + + | Result panel 40 | + + + + + +-------+---------+ + | Bilirub | 2025-09-24 | | 0.6 | mg/dL | (missing) | | SerPl-mCnc | 08:50:08 | [facility] | | | | + + + +-------+---------+ + + + | Result panel 41 | + + + + + +------+ + + | AST | 2025-09-24 | | 16 | (missing) | (missing) | | SerPl-cCnc | 08:50:08 | [facility] | | | | + + + +------+ + + + + | Result panel 42 | + + + + + +------+ + + | ALT | 2025-09-24 | | 16 | (missing) | (missing) | | SerPl-cCn | 08:50:08 | [facility] | | | | + + + +------+ + + + + | Result panel 43 | + + + + + +------+ + + | ALP | 2025-09-24 | | 89 | (missing) | (missing) | | [facility] | 08:50:08 | [facility] | | | | + + + +------+ + + + + | Result panel 44 | + + + + + +--------+ + + | Troponin I | 2025-09-24 | | 12.1 | (missing) | (missing) | | SerPl | 08:50:08 | [facility] | | | | | HS-mCnc [facility] | | | | + + + +--------+ + + + + | Result panel 45 | + + + + + +--------+ + + | Hct VFr.DF | 2025-09-24 | | 32.5 | (missing) | (missing) | | Bld Auto | 08:50:08 | [facility] | | | | + + + +--------+ + + + + | Result panel 46 | + + + + + +--------+ + + | RBC Auto | 2025-09-24 | | 79.5 | (missing) | (missing) | | | 08:50:08 | [facility] | | | | + + + +--------+ + + + + | Result panel 47 | + + + + + +--------+ + + | MCH RBC Qn | 2025-09-24 | | 23.7 | (missing) | (missing) | | Auto | 08:50:08 | [facility] | | | | + + + +--------+ + + + + | Result panel 48 | + + + + + +--------+ + + | MCHC RBC | 2025-09-24 | | 29.8 | (missing) | (missing) | | Auto-EntMCnc | 08:50:08 | [facility] | | | | + + + +--------+ + + + + | Result panel 49 | + + + + + +-------+ + + | Platelet # | 2025-09-24 | | 270 | (missing) | (missing) | | Bld Auto | 08:50:08 | [facility] | | | | + + + +-------+ + + + + | Result panel 50 | + + + + + +--------+ + + | Neutrophils | 2025-09-24 | | 69.6 | (missing) | (missing) | | NFr Bld | 08:50:08 | [facility] | | | | | Auto | [facility] | | | | + + + +--------+ + + Social History +--------+ + + [...] d | | | + + + +---------+ | 2025-09-24 00:00 | BMI | 32.8 | kg/m2 | + + + +---------+ | 2025-09-24 00:00 | BP_diastolic | 68 | mmHg | + + + +---------+ | 2025-09-24 00:00 | BP_systolic | 111 | mmHg | + + + +---------+ | 2025-09-24 00:00 | heart_rate | 67 | /min | + + + +---------+ | 2025-09-24 00:00 | height_metric | 170.18 | cm | + + + +---------+ | 2025-09-24 00:00 | height_standard | 67 | in | + + + +---------+ | 2025-09-24 00:00 | o2_saturation | 100 | % | + + + +---------+ | 2025-09-24 00:00 | respiration_rate | 18 | /min | + + + +---------+ | 2025-09-24 00:00 | | 98 | F | | | temperature_standar | | | | | d | | | + + + +---------+ | 2025-09-24 00:00 | weight_metric | 95.101 | kg | + + + +---------+ | 2025-09-24 00:00 | weight_standard | 209.662 | lb | + + + +---------+"
[~2025-10-28 13:43] MED LIST changes: +METOPROLOL TART25 MG PO
[2025-10-28 14:13] LABS: BASOPHILS 1.0 % (0.1-1.2); EOSINOPHILS 5.5 % (0.7-5.8); LYMPHOCYTES 16.8 % (19.3-51.7); MCH 24.9 PG (25.6-32.2); MCHC 30.2 g/dL (32.2-35.5); MCV 82.4 fL (79.4-94.8); MONOCYTES 14.7 % (4.7-12.5); NEUTROPHILS 61.8 % (34.0-71.1); RBC 3.74 M/uL (3.93-5.22)
[2025-10-28 14:40] LABS: ALT (SGPT) 16.0 U/L (14-59); AST (SGOT) 20.0 U/L (15-37); GLOMERULAR FILTRATION RATE,EST 64.0 mL/min (>60); PROTEIN, TOTAL 6.3 g/dL (6.4-8.2); UREA NITROGEN 18.0 mg/dL (7-18)
[2025-10-28 14:45] LABS: INR 1.24 (0.80-1.30); PROTIME 15.2 Sec (11.2-14.2)
[2025-10-28] MEDS ORDERED: SODIUM CHLORIDE 0.9% 1,000 ML IV PRN (14:45)
[2025-10-28 17:27] VITALS: BP 124/57
--- NOTE | 2025-10-29 00:08 | EKG ---
[facility] [address] [place] [address] Signed Atrial fibrillation with rapid ventricular response Possible Anterior infarct , age undetermined Abnormal ECG When compared with ECG of 24-SEP-2025 12:20, Atrial fibrillation has replaced Sinus rhythm Vent. rate has increased BY 80 BPM T wave inversion now evident in Lateral leads Confirmed by Brando Gutierrez MD () on 10/29/2025 12:08:06 AM Electronically Signed By: BRANDO GUTIERREZ MD 10/29/25 0008 PATIENT NAME: JUAN DAVID DUKE Electrocardiogram DATE OF : 53 PHYSICIAN: BRANDO GUTIERREZ MD REPORT #: [id number] REPORT IS CONFIDENTIAL AND NOT TO BE RELEASED WITHOUT AUTHORIZATION
--- NOTE | 2025-10-30 17:42 | EKG ---
[facility] [address] [place] [address] Signed Sinus rhythm with premature atrial complexes Possible Anterior infarct (cited on or before 28-OCT-2025) Abnormal ECG When compared with ECG of 28-OCT-2025 13:46, (Unconfirmed) Sinus rhythm has replaced Atrial fibrillation Vent. rate has decreased BY 84 BPM T wave inversion no longer evident in Lateral leads Confirmed by Wilfrid Cartagena DO ([id number]) on 10/30/2025 5:41:52 PM Electronically Signed By: WILFRID CARTAGENA DO 10/30/25 1742 PATIENT NAME: JUAN DAVID DUKE Electrocardiogram DATE OF : 53 PHYSICIAN: WILFRID CARTAGENA DO REPORT #: [id number] REPORT IS CONFIDENTIAL AND NOT TO BE RELEASED WITHOUT AUTHORIZATION
== END 2025-10-28 17:31 | disposition home or self-care (01) ==
LOC: ED 13:43
PROVIDERS: Emergency Medicine
DX: I48.91 Unspecified atrial fibrillation (principal); K21.9 Gastro-esophageal reflux disease without esophagitis; E78.5 Hyperlipidemia, unspecified; Z91.040 Latex allergy status; Z88.8 Allergy status to other drugs, medicaments and biological substances; Z79.899 Other long term (current) drug therapy
CPT/HCPCS: 36415; 80053; 83735; 85025; 85610; 93005; 93010; 96374; 99285-25